=== PATIENT | female | born 1975 | race Two or more races ===

== ENCOUNTER 2023-12-22 21:05 | Emergency (ER) | payer SELFPAY ==
[2023-12-22 23:09] LABS: Absolute Basophils 0.1 K/uL (0-0.5); Absolute Eosinophils 0.2 K/uL (0-0.5); Absolute Lymphocytes (CBC) 2.5 K/uL (0.7-4.9); Absolute Monocytes 0.7 K/uL (0.1-1.3); Absolute Neutrophil 2.4 K/uL (1.8-8.0); Basophils % 1.3 % (0-1.3); Eosinophils % 3.8 % (0-4.4); Hematocrit 16.8 % (36.0-45.0); Lymphocytes % 42.8 % (15.3-44.8); MCH 18.6 pg (27.0-35.0); MCHC 28.2 g/dL (32.0-36.0); MPV 7.4 fL (7.6-11.3); Neutrophils % 40.1 % (41.7-73.7); Nucleated Red Blood Cells % 0.2 % (0-0); Platelets 358 thou/uL (152-406); RBC Red Blood Cell Count 2.55 M/uL (3.86-4.86); Red Cell Distribution Width 20.6 % (12.1-15.2)
[2023-12-22 23:18] LABS: Hemoglobin 4.7 g/dL (12.0-15.0)
[2023-12-22 23:20] LABS: Albumin 3.2 g/dL (3.4-5.0); Albumin/Globulin Ratio 0.7 (1.1-1.8); Anion Gap 8.4 mEq/L (5.0-15.0); Bilirubin Total 0.3 mg/dL (0.2-1.0); Globulin 4.3 g/dL (2.3-3.5); Potassium 3.4 mEq/L (3.5-5.1); Protein, Total 7.5 g/dL (6.4-8.2)
[2023-12-22 23:37] LABS: Specific Gravity < 1.005 (1.005-1.030)
[2023-12-22 23:43] LABS: Specific Gravity < 1.005 (1.005-1.030); Sqamous Epithelial <5 /HPF (None Seen); Urine Bacteria None Seen /HPF (<20); Urine Bilirubin NEGATIVE (Negative); Urine Blood Negative (Negative); Urine Clarity Turbid (Clear); Urine Color Colorless (Yellow); Urine Culture Reflex Order NOT NEEDED; Urine Glucose NEGATIVE (Negative); Urine Ketones NEGATIVE (Negative); Urine Microscopic Reflex YN ORDER UMIC; Urine Nitrite NEGATIVE (Negative); Urine Protein NEGATIVE (Negative); Urine RBC <5 /HPF (None Seen); Urine Urobilinogen Normal (Normal); Urine WBC <5 /HPF (<5)
[2023-12-23] MEDS ORDERED: DIPHENHYDRAMINE 25 MG TAB/CAP ONE (01:04)
[2023-12-23 01:14] LABS: Anisocytosis SLIGHT; Blood Morphology Comment NOTED (NOT SEEN); Hypochromasia 2+; Microcytosis 2+; Platelet Estimate ADEQ; White Blood Cell Scan OK (OK)
[2023-12-23] MEDS ORDERED: NA CHLORIDE 0.9% 250 ML ONE ×2 (01:32→04:41)
[2023-12-23] MEDS ORDERED: CALCIUM GLUCONATE 1 GM IVPB 1 GM/50 ML BAG IV ONE (01:33)
--- NOTE | 2023-12-23 05:50 | ER ---
Nurse's Notes [facility] Name: Adrienne Cabrera Age: 48 yrs Sex: Female : 1975 Arrival Date: 12/22/2023 Time: 21:05 Bed 7 Private MD: Diagnosis: Anemia in other chronic diseases classified elsewhere Presentation: 12/21 21:42 Coronavirus screen: Vaccine status: Patient reports being unvaccinated. Ebola Screen: tm6 Patient negative for fever greater than or equal to 101.5 degrees Fahrenheit, and additional compatible Ebola Virus Disease symptoms Patient denies exposure to infectious person. Patient denies travel to an Ebola-affected area in the 21 days before illness onset. No symptoms or risks identified at this time. Initial Sepsis Screen: Does the patient meet any 2 criteria? No. Patient's initial sepsis screen is negative. Does the patient have a suspected source of infection? No. Patient's initial sepsis screen is negative. Risk Assessment: Do you want to hurt yourself or someone else? Patient reports no desire to harm self or others. 21:42 Method Of Arrival: Ambulatory tm6 21:44 Chief complaint: Patient states: is homeless. Went to a medical resource in [place] for tm6 the homeless and got checked out. Doctor called today and told her her hemoglobin was 5. Patient has been weak and getting headaches. 21:44 Acuity: CODY 3 tm6 21:44 Onset of symptoms was December 22, 2023. tm6 Triage Assessment: 21:42 General: Appears. 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 - Infectious Disease History:: Denies. - Social history:: Smoking status: Patient reports the use of cigarette tobacco products, smokes one pack cigarettes per day. Reported history of juuling and/or vaping. Patient uses alcohol, occasionally. Screenin:00 [facility] ED Fall Risk Assessment (Adult) History of falling in the last 3 months, ha1 including since admission No falls in past 3 months (0 pts) Confusion or Disorientation No (0 pts) Intoxicated or Sedated Yes (3 pts) Impaired Gait No (0 pts) Mobility Assist Device Used No (0 pt) Altered Elimination Yes (1 pt) Score/Fall Risk Level 3 or more points = High Risk Oriented to surroundings, Maintained a safe environment, Educated pt \T\ family on fall prevention, incl call for assistance when getting out of bed, Hourly rounding (assess needs \T\ fall precautionary measures) done. Abuse screen: Denies threats or abuse. Denies injuries from another. Nutritional screening: No deficits noted. Tuberculosis screening: No symptoms or risk factors identified. Assessment: 23:00 General: Appears uncomfortable, Behavior is calm, cooperative. Pain: Denies pain. ha1 Neuro: Level of Consciousness is awake, alert, obeys commands, Oriented to person, place, time, situation. Neuro: Reports weakness generalized. Cardiovascular: Capillary refill < 3 seconds Patient's skin is warm and dry. Respiratory: Airway is patent Respiratory effort is even, unlabored, Respiratory pattern is regular, symmetrical. GI: Abdomen is round non-distended. Derm: Skin is pink, warm \T\ dry. Musculoskeletal: No signs and/or symptoms reported regarding the musculoskeletal system. Circulation, motion, and sensation intact. Range of motion: intact in all extremities. 23:00 : Reports vaginal bleeding that is bright red, moderate flow. ha1 12/22 00:00 Reassessment: Patient and/or family updated on plan of care and expected duration. Pain ha1 level reassessed. Patient is alert, oriented x 3, equal unlabored respirations, skin warm/dry/pink. 01:00 Reassessment: Patient and/or family updated on plan of care and expected duration. Pain ha1 level reassessed. Patient is alert, oriented x 3, equal unlabored respirations, skin warm/dry/pink. 02:00 Reassessment: Patient and/or family updated on plan of care and expected duration. Pain ha1 level reassessed. Patient is alert, oriented x 3, equal unlabored respirations, skin warm/dry/pink. 02:30 Reassessment: see flow sheet for more vital signs. ha1 03:00 Reassessment: Patient and/or family updated on plan of care and expected duration. Pain ha1 level reassessed. Patient is alert, oriented x 3, equal unlabored respirations, skin warm/dry/pink. 04:10 Reassessment: Patient and/or family updated on plan of care and expected duration. Pain ha1 level reassessed. Patient is alert, oriented x 3, equal unlabored respirations, skin warm/dry/pink. first unit of blood completed. 04:55 Reassessment: Patient and/or family updated on plan of care and expected duration. Pain ha1 level reassessed. Patient is alert, oriented x 3, equal unlabored respirations, skin warm/dry/pink. second unit of blood started. see flow sheet for more vital signs. 05:50 Reassessment: Patient and/or family updated on plan of care and expected duration. Pain ha1 level reassessed. Patient is alert, oriented x 3, equal unlabored respirations, skin warm/dry/pink. 06:00 Reassessment: discharge pending due to ongoing blood transfusion. ha1 06:42 Reassessment: Patient and/or family updated on plan of care and expected duration. Pain ha1 level reassessed. Patient is alert, oriented x 3, equal unlabored respirations, skin warm/dry/pink. 06:55 Reassessment: Blood transfusion completed. Pt tolerated well. VSS, resp even and pc2 unlabored. Pt to be discharged home. Vital Signs: 12/21 21:40 BP 120 / 56; Pulse 71; Resp 19; Temp 98.9; Pulse Ox 97% on R/A; Weight 47.63 kg; Height tm6 5 ft. 2 in. ; Pain 0/10; 23:00 BP 102 / 56; Pulse 70; Resp 17 S; Pulse Ox 98% on R/A; ha1 12/22 00:40 BP 103 / 64; Pulse 67; Resp 17 S; Pulse Ox 100% on R/A; ha1 01:45 BP 96 / 67; Pulse 67; Resp 17 S; Pulse Ox 100% on R/A; ha1 02:40 BP 105 / 75; Pulse 65; Resp 17 S; Pulse Ox 100% ; ha1 03:00 BP 120 / 84; Pulse 68; Resp 17 S; Pulse Ox 100% on R/A; ha1 03:20 BP 129 / 84; Pulse 65; Resp 17 S; Pulse Ox 100% on R/A; ha1 04:10 BP 139 / 78; Pulse 64; Resp 16 S; Pulse Ox 100% on R/A; ha1 05:05 BP 124 / 86; Pulse 65; Resp 16 S; Pulse Ox 100% on R/A; ha1 06:00 BP 110 / 66; Pulse 59; Resp 17 S; Pulse Ox 100% on R/A; ha1 06:42 BP 127 / 74; Pulse 66; Resp 18 S; Pulse Ox 100% on R/A; ha1 12/21 21:40 Body Mass Index 19.20 (47.63 kg, 157.48 cm) tm6 12/21 21:40 Pain Scale: Adult tm6 ED Course: 12/21 21:09 Patient arrived in ED. jj6 21:29 Yolette Anaya PA-C is PHCP. sb4 21:29 Jaun Berg MD is Attending Physician. sb4 21:46 Triage completed. tm6 21:46 Arm band placed on left wrist. tm6 22:34 CBC with Diff Sent. vk 22:34 CMP Sent. vk 22:34 Test, Urine Sent. vk 22:34 Urinalysis w/ reflexes Sent. vk 22:34 Missed attempt(s): 22 gauge in left antecubital area. vk 22:34 Initial lab(s) drawn, by me, sent to lab. Urine collected: clean catch specimen. vk 22:58 Missed attempt(s): 22 gauge Bleeding controlled, band aid applied, catheter tip intact. oe 23:03 Inserted saline lock: 22 gauge in left antecubital area, using aseptic technique. Blood oe collected. Flushed with 10 mL NS. 12/22 00:00 Patient has correct armband on for positive identification. Placed in gown. Bed in low ha1 position. Call light in reach. Side rails up X 1. Adult w/ patient. 00:26 CT Abd/Pelvis - IV Contrast Only In Process Unspecified. EDMS 01:27 PHCP role handed off by Yolette Anaya PA-C sb4 01:27 Jaun Arceo PA is PHCP. sb4 02:02 Transvaginal Study (probe) In Process Unspecified. EDMS 04:28 Dilia Pop, YUKO is Primary Nurse. ha1 07:07 No provider procedures requiring assistance completed. pc2 07:08 Provided Education on: f/u instructions and medication. pc2 07:08 IV discontinued, intact, bleeding controlled, No redness/swelling at site. Pressure pc2 dressing applied. Administered Medications: 01:30 Drug: Calcium Gluconate IVPB 1 grams IVPB once over 60 mins; (mix in NS 100 mL) Route: ha1 IVPB; Infused Over: 60 mins; Site: left antecubital; 02:30 Follow up: Response: No adverse reaction; IV Status: Completed infusion; IV Intake: ha1 100ml Medication: 04:37 VIS not applicable for this client. ha1 Intake: 02:30 IV: 100ml; Total: 100ml. ha1 Outcome: 05:49 Discharge ordered by MD. cp 07:08 Discharged to home ambulatory, with family, pc2 07:08 Condition: stable 07:08 Discharge instructions given to patient, Instructed on discharge instructions, follow up and referral plans. Demonstrated understanding of instructions, follow-up care, medications, Prescriptions given X 1, 07:09 Patient left the ED. pc2 Signatures: Dispatcher [employer] EDMS Jaun Arceo PA PA cp Espinosa, Orlando oe Jeffries, Jennifer [id number] Dilia Pop RN RN ha1 Yolette Anaya PALeeann PA-Lauren [id number] Taz Porter RN RN tm6 Elke Estrada Pam, RN RN pc2 Corrections: (The following items were deleted from the chart) 12/21 21:44 21:42 PMHx: None; tm6 tm6 21:44 21:42 PSHx: None; tm6 tm6 21:44 21:42 Social history: Smoking status: Patient reports the use of cigarette tobacco tm6 products, smokes one pack cigarettes per day. Reported history of juuling and/or vaping. Patient/guardian denies using alcohol, tm6
--- NOTE | 2023-12-23 05:50 | EDPHYS ---
Physician Documentation [facility] Name: Adrienne Cabrera Age: 48 yrs Sex: Female : 1975 Arrival Date: 12/22/2023 Time: 21:05 Bed 7 Private MD: ZI Physician Jaun Berg HPI: 12/21 21:52 This 48 yrs old Female presents to ER via Ambulatory with complaints of Abnormal Lab sb4 Results. 21:52 had blood work 2 weeks ago. was called today and told her hemoglobin was 5. denies sb4 history of anemia. reports heavy menstrual cycles. additionally endorses fatigue and shortness of breath on exertion, some lower abdominal pain. denies any melena . [employer]: 21:40 LMP 11/21/2023, unknown tm6 Historical: - Allergies: 21:42 Naproxen; tm6 - PMHx: 21:42 Anemia; tm6 - PSHx: 21:42 section; tm6 - Immunization history:: Client reports having NOT received the Covid vaccine. - Infectious Disease History:: Denies. - Social history:: Smoking status: Patient reports the use of cigarette tobacco products, smokes one pack cigarettes per day. Reported history of juuling and/or vaping. Patient uses alcohol, occasionally. ROS: 21:54 Cardiovascular: Negative for chest pain, palpitations, and edema, sb4 21:54 Constitutional: Positive for fatigue, 21:54 Respiratory: Positive for dyspnea on exertion, 21:54 All other systems are negative, Exam: 21:54 Constitutional: This is a well developed, well nourished patient who is awake, alert, sb4 and in no acute distress. Head/Face: Normocephalic, atraumatic. Eyes: Extra-ocular motions intact. Periorbital areas with no swelling, redness, or edema. ENT: Mucous membranes moist. Cardiovascular: Regular rate and rhythm with a normal S1 and S2. Respiratory: Lungs have equal breath sounds bilaterally, clear to auscultation and percussion. No rales, rhonchi or wheezes noted. No increased work of breathing, no retractions or nasal flaring. Abdomen/GI: Soft, non-tender, no distension. Skin: Warm, dry with normal turgor. Normal color with no rashes, no lesions, and no evidence of cellulitis. MS/ Extremity: Pulses equal, no cyanosis. Neurovascular intact. Full, normal range of motion. Neuro: Awake and alert, GCS 15, oriented to person, place, time, and situation. Motor strength 5/5 in all extremities. Sensory grossly intact. Vital Signs: 21:40 BP 120 / 56; Pulse 71; Resp 19; Temp 98.9; Pulse Ox 97% on R/A; Weight 47.63 kg; Height tm6 5 ft. 2 in. ; Pain 0/10; 23:00 BP 102 / 56; Pulse 70; Resp 17 S; Pulse Ox 98% on R/A; ha1 12/22 00:40 BP 103 / 64; Pulse 67; Resp 17 S; Pulse Ox 100% on R/A; ha1 01:45 BP 96 / 67; Pulse 67; Resp 17 S; Pulse Ox 100% on R/A; ha1 02:40 BP 105 / 75; Pulse 65; Resp 17 S; Pulse Ox 100% ; ha1 03:00 BP 120 / 84; Pulse 68; Resp 17 S; Pulse Ox 100% on R/A; ha1 03:20 BP 129 / 84; Pulse 65; Resp 17 S; Pulse Ox 100% on R/A; ha1 04:10 BP 139 / 78; Pulse 64; Resp 16 S; Pulse Ox 100% on R/A; ha1 05:05 BP 124 / 86; Pulse 65; Resp 16 S; Pulse Ox 100% on R/A; ha1 06:00 BP 110 / 66; Pulse 59; Resp 17 S; Pulse Ox 100% on R/A; ha1 06:42 BP 127 / 74; Pulse 66; Resp 18 S; Pulse Ox 100% on R/A; ha1 12/21 21:40 Body Mass Index 19.20 (47.63 kg, 157.48 cm) tm6 12/21 21:40 Pain Scale: Adult tm6 MDM: 12/21 21:38 Patient medically screened. sb4 12/21 21:51 Order name: CBC with Diff; Complete Time: 01:15 sb4 12/21 21:51 Order name: CMP; Complete Time: 23:22 sb4 12/21 21:51 Order name: Test, Urine; Complete Time: 23:40 sb4 12/21 21:51 Order name: Urinalysis w/ reflexes; Complete Time: 23:47 sb4 12/21 21:51 Order name: Type And Screen sb4 12/21 23:20 Order name: CBC Smear Scan; Complete Time: 01:15 EDMS 12/22 00:08 Order name: Packed RBC Leukored EDMS 12/22 00:45 Order name: ABO/RH no charge; Complete Time: 00:46 EDMS 12/21 21:51 Order name: CT Abd/Pelvis - IV Contrast Only sb4 12/22 01:16 Order name: Transvaginal Study (probe) sb4 12/21 21:51 Order name: IV Saline Lock; Complete Time: 23:51 sb4 12/21 21:51 Order name: Labs collected and sent; Complete Time: 22:34 sb4 Administered Medications: 12/22 01:30 Drug: Calcium Gluconate IVPB 1 grams IVPB once over 60 mins; (mix in NS 100 mL) Route: ha1 IVPB; Infused Over: 60 mins; Site: left antecubital; 02:30 Follow up: Response: No adverse reaction; IV Status: Completed infusion; IV Intake: ha1 100ml Disposition Summary: 12/23/23 05:49 Discharge Ordered Notes: Location: Home cp Problem: new cp Symptoms: have improved cp Condition: Stable cp Diagnosis - Anemia in other chronic diseases classified elsewhere cp Followup: cp - With: Private Physician - When: 2 - 3 days - Reason: Recheck today's complaints Discharge Instructions: - Discharge Summary Sheet cp - Anemia cp - Blood Transfusion, Adult cp Forms: - Medication Reconciliation Form cp - Antibiotic Education cp - Prescription Opioid Use cp - Patient Portal Instructions cp - Leadership Thank You Letter cp - Work release form pc2 Prescriptions: - Ferrous Sulfate 325 mg (65 mg Iron) Oral tablet - take 1 tablet ORAL route every 12 hours; 30 tablet; Refills: 0, Product cp Selection Permitted Signatures: Dispatcher [facility] Jaun Arceo PA PA cp Ayala, Heidy, RN RN ha1 Yolette Anaya PA-C PA-C sb4 Masterson, Tawney RN RN tm6 Corrections: (The following items were deleted from the chart) 12/21 21:44 21:42 PMHx: None; tm6 tm6 21:44 21:42 PSHx: None; tm6 tm6 21:44 21:42 Social history: Smoking status: Patient reports the use of cigarette tobacco tm6 products, smokes one pack cigarettes per day. Reported history of juuling and/or vaping. Patient/guardian denies using alcohol, tm6 12/22 01:16 01:16 Transvaginal Study (Probe)+.THO ordered. EDMS EDMS
[2023-12-23 07:27] VITALS: TEMP 98.9
[2023-12-23 07:29] VITALS: O2SAT 100
[2023-12-23 07:42] VITALS: BP 127/74
--- NOTE | 2023-12-23 15:42 | RAD REPORT ---
EXAM DESCRIPTION: CT - Abdomen Pelvis W Contrast - 12/23/2023 6:31 am CLINICAL HISTORY: Abdominal pain. TECHNIQUE: Axial computed tomography images of the abdomen and pelvis with intravenous contrast. S agittal and coronal reformatted images were created and reviewed. This CT exam was performed using one or more of the following dose reduction techniques: automated exposure control, adjustment of t he mA and/or kV according to patient size, and/or use of iterative reconstruction technique. COMPARISON: No relevant prior studies available. FINDINGS: Lung bases: Unremarkable. No mass. No consolidation. ABDOMEN: Liver: Unremarkable. No mass. Gallbladder and bile ducts: Contracted gallbladder. No calcified stones. No ductal dilation. Pancreas: Unremarkable. No mass. No ductal dilation. Spleen: Unremarkable. No splenomegaly. Adrenals: Unremarkable. No mass. Kidneys and ureters: Unremarkable. Normal renal cortical enhancement. No calculi. No hydronephros is. Stomach and bowel: Large bowel air-fluid levels. No bowel obstruction. No appreciable mucosal thick ening. PELVIS: Appendix: Normal caliber appendix. No findings to suggest acute appendicitis. Bladder: The urinary bladder is distended. Reproductive: Enlarged, heterogeneous uterus most compatible with underlying fibroids. There is at least one mass in the region of the endometrial at the level of the fundus. Bilateral ovarian dominan t follicles/cysts measuring 2 cm on the left and 1.8 cm on the right. No follow-up imaging is recomme nded. Reference: JACR 2019;17(2):248-254 ABDOMEN and PELVIS: Intraperitoneal space: Unremarkable. No free air. No significant fluid collection. Bones/joints: L4 intraosseous hemangioma. Moderate to severe degenerative changes at L5-S1. No ac [place] fracture. No dislocation. Soft tissues: Unremarkable. Vasculature: Unremarkable. No abdominal aortic aneurysm. Lymph nodes: Bilateral inguinal lymph nodes measuring up to 14 mm in short axis. IMPRESSION: 1. Nonspecific large bowel air-fluid levels which can be seen in the clinical setting of diarrhea. No appreciable mucosal thickening. 2. Enlarged, heterogeneous uterus most compatible with underlying fibroids. There is at least one s oft tissue density mass in the region of the endometrium at the level of the fundus which may represe nt a submucosal fibroid versus an endometrial polyp/mass. Consider nonemergent pelvic ultrasound or M R for further characterization. 3. Other findings as above. Electronically signed by: Everette Evans MD 12/23/2023 01:13 AM CDT RP Due to temporary technical issues with the PACS/Fluency reporting system, reports are being signed by the in house radiologists without review as a courtesy to insure prompt reporting. The interpreting radiologist is fully responsible for the content of the report.
--- NOTE | 2023-12-23 18:59 | RAD REPORT ---
EXAM DESCRIPTION: US - Transvaginal Study Probe - 12/23/2023 2:00 am CLINICAL HISTORY: 48 years Female, Vaginal bleeding, bulky uterus, bowel/gas. COMPARISON: None. TECHNIQUE: Complete pelvic ultrasound obtained with transvaginal imaging. FINDINGS: Uterus: Uterus measures 11.5 x 6.3 x 7.6 cm. Multiple heterogeneous structures identified in the uterine myometrium, the largest measuring 5.7 cm. Nabothian cysts. Endometrium: Endometrial thickness of 0.5 cm. Right ovary: The right ovary measures 3.2 x 2.3 x 3.2 cm. 1.7 cm right ovarian cyst. No follow-up duc ging for the structure recommended. Left ovary: Not well-visualized due to overlying structures. Adnexa: No additional adnexal findings. Free fluid: No free fluid. Duplex imaging: Color and spectral Doppler imaging demonstrates blood flow in the ovaries. IMPRESSION: 1. Multiple uterine fibroids, the largest measuring 5.7 cm. 2. The left ovary is not well-visualized due to overlying structures. Electronically signed by: Brody Snyder DO 12/23/2023 03:01 AM CDT 4ZDM Due to temporary technical issues with the PACS/Fluency reporting system, reports are being signed by the in house radiologists without review as a courtesy to insure prompt reporting. The interpreting radiologist is fully responsible for the content of the report.
== END 2023-12-23 07:09 | disposition home or self-care (01) ==
LOC: ER 21:05
DX: D64.9 Anemia, unspecified (principal); F17.210 Nicotine dependence, cigarettes, uncomplicated
CPT/HCPCS: 36415; 74177; 76830; 80053; 81001; 81025; 85025; 86850; 86900; 86901; 86920; J0612; J7050; P9016; Q9967